=== PATIENT | male | born 1985 | race Caucasian/White ===

== ENCOUNTER → 2019-03-08 | Outpatient (CLI) | payer OTHER ==
[~2019-03-08] MED LIST: METH4TAB2 PO
== END | disposition home or self-care (01) ==
LOC: CFH 15:49
PROVIDERS: ATTEND Physician Assistant
DX: M54.5 Low back pain (principal)
CPT/HCPCS: 72110

== ENCOUNTER 2019-05-02 01:21 | Emergency (ER) | payer OTHER ==
[~2019-05-02] VITALS: Ht 195.6 cm; Wt 106.0 kg
[2019-05-02] MEDS ORDERED: ACETAMINOPHEN 500 MG TABLET PO ONE (02:00)
[2019-05-02] MEDS ORDERED: KETOROLAC 30 MG/1 ML IM ONE (02:00)
[2019-05-02] MEDS ORDERED: KETOROLAC 30 MG/1 ML ONE (02:03)
[2019-05-02] MEDS ORDERED: ACETAMINOPHEN 500 MG TABLET ONE (02:03)
--- NOTE | 2019-05-02 02:12 | NUR ---
PT MEDICATED FOR PAIN AND BLOOD TO LAB.
[2019-05-02 02:18] LABS: BASOPHILS # (AUTO) 0.07 x10^3/uL (0-0.1); BASOPHILS % (AUTO) 1 % (0-1); EOSINOPHILS # (AUTO) 0.24 x10^3/uL (0-0.4); EOSINOPHILS % (AUTO) 2 % (1-7); LYMPHOCYTES # (AUTO) 1.89 x10^3/uL (1-3.4); LYMPHOCYTES % (AUTO) 19 % (22-44); MD NO; MEAN CORPUSCULAR HEMOGLOBIN 31.6 pg (27.5-34.5); MEAN CORPUSCULAR HGB CONC 33.3 g/dL (33.2-36.2); MEAN CORPUSCULAR VOLUME 94.9 fL (81-97); MEAN PLATELET VOLUME 7.7 fL (7.4-10.4); MONOCYTES # (AUTO) 0.63 x10^3/uL (0.2-0.8); MONOCYTES % (AUTO) 6 % (2-9); NEUTROPHILS # (AUTO) 7.26 x10^3/uL (1.8-6.8); NEUTROPHILS % (AUTO) 72 % (42-75); PLATELET COUNT 566 x10^3/uL (130-400); RED BLOOD COUNT 5.35 x10^6/uL (4.38-5.82); RED CELL DISTRIBUTION WIDTH 13.4 % (9.4-14.8)
[2019-05-02 02:30] LABS: ALBUMIN 3.9 g/dL (3.4-5.0); ANION GAP 7 mmol/L (5-15); CALCIUM 9.5 mg/dL (8.5-10.1); CHLORIDE 106 mmol/L (98-107); CREATININE 1.14 mg/dL (0.7-1.3)
[2019-05-02 02:34] LABS: TROPONIN I < 0.015 ng/mL (0.000-0.045)
--- NOTE | 2019-05-02 02:54 | NUR ---
PT UP FOR RECHECK
[2019-05-02 03:11] VITALS: BP 132/77
[2019-05-02] MEDS ORDERED: ATOM10CA PO (12:34)
[2019-05-04] MEDS ORDERED: APIX5TAB PO (08:43)
[2019-05-04] MEDS ORDERED: HYDR-3307 PO (08:43)
[2019-05-04] MEDS ORDERED: CEFD300C37 PO (08:43)
== END 2019-05-02 03:18 | disposition home or self-care (01) ==
LOC: ED 03:00
DX: R07.9 Chest pain, unspecified (principal); M25.511 Pain in right shoulder
CPT/HCPCS: 36415; 71045; 80048; 82040; 84484; 85025; 85379; 93005; 96372; 99284; J1885